=== PATIENT | male | born 1960 | race Two or more races ===

== ENCOUNTER 2018-08-09 05:40 | Day surgery (SDC) | payer BC ==
[2018-08-09] MEDS ORDERED: MIDAZOLAM 1 MG/ML 2 ML INJ ×2 (08:03→08:04)
[2018-08-09] MEDS ORDERED: FENTAnyl 50 MCG/ML VIAL (08:04)
== END 2018-08-09 10:04 | disposition home or self-care (01) ==
LOC: GIL 05:40
DX: K21.9 Gastro-esophageal reflux disease without esophagitis (principal); K29.70 Gastritis, unspecified, without bleeding
CPT/HCPCS: 43239; 88305